=== PATIENT | male | born 1955 | race African-American/Black ===

== ENCOUNTER 2017-02-19 12:49 | Inpatient (IN) | payer OTHER ==
[2017-02-19 13:16] VITALS: BMI 24.9
--- NOTE | 2017-02-19 15:18 | HP ---
CIWA Score - CIWA Score Nausea/Vomitin Muscle Tremors: 3 Anxiety: 3 Agitation: 3 Paroxysmal Sweats: 2 Orientation: 0-Oriented Tacttile Disturbances: 2-Mild Itch/Numbness/Burn Auditory Disturbances: 2-Mild Harshness/Frighten Visual Disturbances: 2-Mild Sensitivity Headache: 2-Mild CIWA-Ar Total Score: 22 Admission ROS BHS - HPI Chief Complaint: i am tire of drinking Allergies/Adverse Reactions: Allergies Allergy/AdvReac Type Severity Reaction Status Date / Time No Known Allergies Allergy Verified 02/19/17 14:54 History of Present Illness: this 61 years old male with alcohol dependence,withdrawal symptom,seeking detox from alcohol,last treatment 2014 did not recall location arthritis of right hip hypertension weight loss longest period of sobriety 1 year Exam Limitations: No Limitations - Ebola screening Have you traveled outside of the country in the last 21 days: No Have you had contact with anyone from an Ebola affected area: No Have you been sick,other than usual withdrawal symptoms: No Do you have a fever: No - Review of Systems Constitutional: Loss of Appetite, Malaise, Night Sweats, Changes in sleep, Weakness, Unintentional Wgt. Loss EENT: reports: Tearing, Nose Congestion Respiratory: reports: No Symptoms reported Cardiac: reports: Palpitations GI: reports: Diarrhea, Nausea, Vomiting, Abdominal cramping : reports: No Symptoms Reported Musculoskeletal: reports: Back Pain, Joint Pain, Muscle Pain, Joint Stiffness ( pin in the right hip) Integumentary: reports: Dryness Neuro: reports: Headache, Tremors Endocrine: reports: No Symptoms Reported Hematology: reports: No Symptoms Reported Psychiatric: reports: No Sypmtoms Reported Other Systems: Reviewed and Negative Patient History - Patient Medical History Hx Asthma: No Hx Chronic Obstructive Pulmonary Disease (COPD): No Hx Cardiac Disorders: No Hx Hypertension: Yes (on meds.) Hx Pacemaker: No HX Cerebrovascular Accident: No Hx Seizures: No Hx Diabetes: No Hx Gastrointestinal Disorders: No Hx Liver Disease: No Hx Genitourinary Disorders: No Hx Sexually Transmitted Disorders: Yes (Tx for syphillis.) Hx Renal Disease (ESRD): No Hx Thyroid Disease: No Hx Human Immunodeficiency Virus (HIV): No (last 12/11 negative) Hx Hepatitis C: No Hx Depression: No Hx Suicide Attempt: No Hx Bipolar Disorder: No Hx Schizophrenia: No Other Medical History: no suicidal,no homicidal - Patient Surgical History Past Surgical History: No - PPD History Previous Implant?: Yes Documented Results: Positive w/o proof Implanted On Prior R Admission?: No PPD to be Administered?: No - Smoking Cessation Smoking history: Current every day smoker Have you smoked in the past 12 months: Yes Aproximately how many cigarettes per day: 20 Hx Chewing Tobacco Use: No Initiated information on smoking cessation: Yes 'Breaking Loose' booklet given: 02/19/17 - Substance & Tx. History Hx Alcohol Use: Yes Hx Substance Use: No Substance Use Type: Alcohol Hx Substance Use Treatment: Yes (2014 unknown location) - Substances Abused Alcohol Route: Oral Frequency: Daily Amount used: 3-4 pints vodka Age of first use: 19 Date of Last Use: 02/18/17 Family Disease History - Family Disease History Family History: Denies Admission Physical Exam [facility] - Vital Signs Vital Signs: Vital Signs - 24 hr 02/19/17 13:07 Temperature 96.4 F L Pulse Rate 119 H Respiratory 20 Rate Blood Pressure 146/98 - Physical General Appearance: Yes: Moderate Distress, Tremorous, Irritable, Sweating, Anxious HEENTM: Yes: Normocephalic, [place] Respiratory: Yes: Lungs Clear, Normal Breath Sounds, No Respiratory Distress Neck: Yes: Within Normal Limits, Supple, Trachea in good position Breast: Yes: Within Normal Limits Cardiology: Yes: Within Normal Limits, Regular Rhythm, Regular Rate, S1, S2 Abdominal: Yes: Within Normal Limits, Normal Bowel Sounds, Non Tender, Flat, Soft Genitourinary: Yes: Within Normal Limits Back: Yes: Muscle Spasm Musculoskeletal: Yes: Back pain, Joint Stiffness (limping on ambulation form arthritis of right hip), Muscle Pain Extremities: Yes: Tremors 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 NML intact, Fully Oriented, Alert, Motor Strength 5/5 Integumentary: Yes: Within Normal Limits Lymphatic: Yes: Within Normal Limits - Diagnostic (1) Alcohol dependence with uncomplicated withdrawal Current Visit: Yes Status: Acute (2) Essential hypertension Current Visit: Yes Status: Acute (3) Hyperlipidemia Current Visit: Yes Status: Acute (4) Weight loss Current Visit: Yes Status: Acute (5) Limping Current Visit: Yes Status: Acute Cleared for Admission [facility] - Detox or Rehab B[facility] Level of Care: Medically Managed [facility] Breath Alcohol Content Breath Alcohol Content: 0.121 Urine Drug Screen - Results Drug Screen Negative: No Urine Drug Screen Results: SHANE-Cocaine, BZO-Benzodiazepines
[2017-02-19] MEDS ORDERED: P-EPHED 60MG/TRIPROLIDI 2.5MG TABLET PO PRN (15:27)
[2017-02-19] MEDS ORDERED: MAGNESIUM HYDROX 2400MG/30ML ORAL SUSPENSION 30 ML CUP PO PRN (15:27)
[2017-02-19] MEDS ORDERED: guaiFENesin/D-METHORPHAN HB 10 ML UNIT-DOSE CUPS PO PRN (15:27)
[2017-02-19] MEDS ORDERED: LOPERAMIDE HCL 2 MG CAPSULE PO PRN (15:27)
[2017-02-19] MEDS ORDERED: MAG HYDROX/AL HYDROX/SIMETH 30 ML UNIT-DOSE CUP PO PRN (15:27)
[2017-02-19] MEDS ORDERED: MAGNESIUM CITRATE 300 ML BOTTLE PO PRN (15:27)
[2017-02-19] MEDS ORDERED: MENTHOL/PHENOL 1 EACH UD MM PRN (15:27)
[2017-02-19] MEDS ORDERED: ACETAMINOPHEN 325 MG TABLET (FP) PO PRN (15:27)
[2017-02-19] MEDS: chlordiazePOXIDE HCL 25 MG CAPSULE PO SCH ×2 (17:54→22:34)
[2017-02-19 19:34] LABS: URINE APPEARANCE CLEAR; URINE BLOOD NEGATIVE (NEGATIVE); URINE COLOR AMBER; URINE GLUCOSE (UA) NEGATIVE (NEGATIVE); URINE KETONE TRACE (NEGATIVE); URINE LEUK ESTERASE NEGATIVE (NEGATIVE); URINE NITRITE NEGATIVE (NEGATIVE)
[2017-02-19 21:27] LABS: URINE PROTEIN 1+ (NEGATIVE)
[2017-02-19 21:37] LABS: GRANULAR CASTS 9 /lpf; URINE HYALINE CAST 20 /lpf; URINE MUCUS MODERATE; URINE RBC 1 /hpf (0-3); URINE WBC 1 /hpf (3-5)
[2017-02-19] MEDS: diphenhydrAMINE HCL 50 MG CAPSULE PO PRN (22:34)
[2017-02-19] MEDS: THIAMINE HCL 100 MG TABLET (FP) PO SCH (22:34)
[2017-02-20] MEDS: chlordiazePOXIDE HCL 25 MG CAPSULE PO SCH ×4 (06:08→22:40)
[2017-02-20 10:17] LABS: MCH 36.1 pg (25.7-33.7); MCHC 33.5 g/dl (32.0-35.9); MEAN CELL VOLUME 107.6 fl (80-96); MEAN PLT VOLUME 9.7 fl (7.5-11.1); PLATELET COUNT 65 K/MM3 (134-434); RDW 16.5 % (11.9-15.9); WHITE BLOOD COUNT 2.8 K/mm3 (4.0-10.0)
[2017-02-20] MEDS: amLODIPine BESYLATE 10 MG TABLET (FP) PO SCH (10:25)
[2017-02-20] MEDS: PRENATAL VITAMINS W/ FOLIC ACID TABLET (FP) PO SCH (10:25)
[2017-02-20] MEDS: METOPROLOL TARTRATE 50 MG TABLET (FP) PO SCH (10:26)
[2017-02-20] MEDS: HYDROCHLOROTHIAZIDE 25 MG TABLET (FP) PO SCH (10:26)
[2017-02-20 10:27] LABS: ALBUMIN 2.6 g/dl (3.4-5.0); ANION GAP 7 (8-16); CALCIUM 9.2 mg/dL (8.5-10.1); CO2 35 mmol/L (21-32); GLUCOSE,RANDOM 84 mg/dL (74-106)
[2017-02-20] MEDS: IBUPROFEN 400 MG TABLET (FP) PO PRN ×2 (10:29→17:26)
[2017-02-20 10:30] LABS: ALK PHOS 124 U/L (45-117); BILIRUBIN,TOTAL 0.8 mg/dL (0.2-1.0); SGOT/AST 175 U/L (15-37); SGPT/ALT 54 U/L (12-78); TOT PROT 5.8 g/dl (6.4-8.2)
--- NOTE | 2017-02-20 11:58 | PN ---
[facility] CIWA - CIWA Score Nausea/Vomitin-Mild Nausea/No Vomiting Muscle Tremors: 3 Anxiety: 4-Mod. Anxious/Guarded Agitation: 3 Paroxysmal Sweats: 3 Orientation: 0-Oriented Tacttile Disturbances: 3-Moderate Itch/Numb/Burn Auditory Disturbances: 0-None Visual Disturbances: 0-None Headache: 0-None Present CIWA-Ar Total Score: 17 BHS Progress Note (SOAP) Subjective: Interrupted sleep, Tremors, Sweating. Objective: PT. A & O X 3, OBSERVED AMBULATING ON UNIT. NO ACUTE DISTRESS. PT. DENIES CHEST PAIN. 02/20/17 11:54 Vital Signs Temperature 98.1 F 02/20/17 10:00 Pulse Rate 86 02/20/17 10:00 Respiratory Rate 20 02/20/17 10:00 Blood Pressure 152/109 02/20/17 10:00 O2 Sat by Pulse Oximetry (%) Laboratory Tests 02/19/17 02/20/17 02/20/17 18:00 06:30 06:30 WBC 2.8 L RBC 2.89 L Hgb 10.4 L Hct 31.1 L MCV 107.6 H MCH 36.1 H MCHC 33.5 RDW 16.5 H Plt Count 65 L MPV 9.7 Sodium 145 Potassium 3.2 L Chloride 103 Carbon Dioxide 35 H Anion Gap 7 L BUN 13 Creatinine 1.0 Creat Clearance w eGFR > 60 Random Glucose 84 Calcium 9.2 Total Bilirubin 0.8 AST 175 H ALT 54 Alkaline Phosphatase 124 H Total Protein 5.8 L Albumin 2.6 L Urine Color Paige Urine Appearance Clear Urine pH 5.0 Ur Specific [place] 1.025 Urine Protein 1+ H Urine Glucose (UA) Negative Urine Ketones Trace H Urine Blood Negative Urine Nitrite Negative Urine Bilirubin 2.0 Urine Urobilinogen 2.0 Ur Leukocyte Esterase Negative Urine RBC 1 Urine WBC 1 Ur Epithelial Cells Rare Hyaline Casts 20 Granular Casts 9 Urine Mucus Moderate LABS NOTED. RPR RESULT PENDING. 02/20/17 12:01 Assessment: 02/20/17 11:56 WITHDRAWAL SYMPTOMS. Plan: CONTINUE DETOX. K-DUR, 20 MEQ PO NOW, THEN BID AFTER. FEOSOL, 325 MG PO TID WITH MEALS. REPEAT CBC AND AST ON 02/22/2017 FOR ABNORMAL ADMISSION LEVELS.
[2017-02-20] MEDS ORDERED: PNEUMOC 13-VAL CONJ-DIP CRM/PF 0.5 ML DISP.SYRIN IM ONE (12:00)
--- NOTE | 2017-02-20 12:00 | EKG ---
Test Reason : Blood Pressure : / mmHG Vent. Rate : 110 BPM Atrial Rate : 110 BPM P-R Int : 132 ms QRS Dur : 084 ms QT Int : 320 ms P-R-T Axes : 070 034 -61 degrees QTc Int : 433 ms SINUS TACHYCARDIA POSSIBLE LEFT ATRIAL ENLARGEMENT LEFT VENTRICULAR HYPERTROPHY T WAVE ABNORMALITY, CONSIDER INFEROLATERAL ISCHEMIA ABNORMAL ECG NO PREVIOUS ECGS AVAILABLE Confirmed by GABY PETE MD ([id number]) on 02/20/2017 12:00:23 PM Referred By: Confirmed By:GABY PETE MD
[2017-02-20] MEDS: POTASSIUM CHLORIDE TABS 20 MEQ TABLET.ER (FP) PO SCH ×2 (12:46→22:40)
[2017-02-20] MEDS: FERROUS SO4 325 MG TABLET (FP) PO SCH ×2 (12:46→17:58)
[2017-02-20] MEDS ORDERED: PNEUMOCOCCAL 23 VACCINE 0.5 ML VIAL IM ONE (13:00)
[2017-02-20] MEDS ORDERED: NICOTINE POLACRILEX 2 MG GUM BUC PRN (13:03)
[2017-02-20] MEDS: NICOTINE 21 MG/24 HOURS TOPICAL PATCH TD SCH (13:22)
[2017-02-20] MEDS: chlordiazePOXIDE HCL 25 MG CAPSULE PO PRN (15:52)
[2017-02-20] MEDS: PATIENT'S OWN MEDICATION (NON-FORMULARY) (Pravastatin Sodium 20 MG) PO SCH ×2 (17:43→22:40)
[2017-02-20] MEDS: diphenhydrAMINE HCL 50 MG CAPSULE PO PRN (22:40)
[2017-02-20] MEDS: THIAMINE HCL 100 MG TABLET (FP) PO SCH (22:40)
[2017-02-21] MEDS: chlordiazePOXIDE HCL 25 MG CAPSULE PO SCH ×2 (05:49→10:18)
[2017-02-21] MEDS: FERROUS SO4 325 MG TABLET (FP) PO SCH ×3 (08:13→17:45)
[2017-02-21] MEDS: IBUPROFEN 400 MG TABLET (FP) PO PRN ×2 (09:32→17:45)
[2017-02-21] MEDS: PRENATAL VITAMINS W/ FOLIC ACID TABLET (FP) PO SCH (10:18)
[2017-02-21] MEDS: METOPROLOL TARTRATE 50 MG TABLET (FP) PO SCH (10:18)
[2017-02-21] MEDS: POTASSIUM CHLORIDE TABS 20 MEQ TABLET.ER (FP) PO SCH ×2 (10:18→22:32)
[2017-02-21] MEDS: amLODIPine BESYLATE 10 MG TABLET (FP) PO SCH (10:18)
[2017-02-21] MEDS: NICOTINE 21 MG/24 HOURS TOPICAL PATCH TD SCH (10:19)
[2017-02-21] MEDS: HYDROCHLOROTHIAZIDE 25 MG TABLET (FP) PO SCH (10:19)
--- NOTE | 2017-02-21 11:57 | PN ---
[facility] CIWA - CIWA Score Nausea/Vomitin-No Nausea/No Vomiting Muscle Tremors: 4-Moderate,w/Arms Extend Anxiety: 3 Agitation: 3 Paroxysmal Sweats: 3 Orientation: 0-Oriented Tacttile Disturbances: 0-None Auditory Disturbances: 0-None Visual Disturbances: 0-None Headache: 0-None Present CIWA-Ar Total Score: 13 S Progress Note (SOAP) Subjective: sweats body aches Objective: 02/21/17 11:55 Vital Signs Temperature 98.2 F 02/21/17 10:00 Pulse Rate 94 H 02/21/17 10:00 Respiratory Rate 20 02/21/17 10:00 Blood Pressure 152/104 02/21/17 10:00 O2 Sat by Pulse Oximetry (%) Laboratory Tests 02/19/17 02/20/17 02/20/17 18:00 06:30 06:30 WBC 2.8 L RBC 2.89 L Hgb 10.4 L Hct 31.1 L MCV 107.6 H MCH 36.1 H MCHC 33.5 RDW 16.5 H Plt Count 65 L MPV 9.7 Sodium 145 Potassium 3.2 L Chloride 103 Carbon Dioxide 35 H Anion Gap 7 L BUN 13 Creatinine 1.0 Creat Clearance w eGFR > 60 Random Glucose 84 Calcium 9.2 Total Bilirubin 0.8 AST 175 H ALT 54 Alkaline Phosphatase 124 H Total Protein 5.8 L Albumin 2.6 L Urine Color Paige Urine Appearance Clear Urine pH 5.0 Ur Specific [place] 1.025 Urine Protein 1+ H Urine Glucose (UA) Negative Urine Ketones Trace H Urine Blood Negative Urine Nitrite Negative Urine Bilirubin 2.0 Urine Urobilinogen 2.0 Ur Leukocyte Esterase Negative Urine RBC 1 Urine WBC 1 Ur Epithelial Cells Rare Hyaline Casts 20 Granular Casts 9 Urine Mucus Moderate RPR Titer 02/20/17 06:30 WBC RBC Hgb Hct MCV MCH MCHC RDW Plt Count MPV Sodium Potassium Chloride Carbon Dioxide Anion Gap BUN Creatinine Creat Clearance w eGFR Random Glucose Calcium Total Bilirubin AST ALT Alkaline Phosphatase Total Protein Albumin Urine Color Urine Appearance Urine pH Ur Specific [place] Urine Protein Urine Glucose (UA) Urine Ketones Urine Blood Urine Nitrite Urine Bilirubin Urine Urobilinogen Ur Leukocyte Esterase Urine RBC Urine WBC Ur Epithelial Cells Hyaline Casts Granular Casts Urine Mucus RPR Titer Nonreactive awake/alert ambulating no acute distress f/u pending labs to be drawan tomorrow Assessment: 02/21/17 11:56 withdrawal sx Plan: continue detox increase fluids
[2017-02-21] MEDS: chlordiazePOXIDE 5 MG CAPSULE PO SCH ×2 (17:45→22:32)
[2017-02-21] MEDS: PATIENT'S OWN MEDICATION (NON-FORMULARY) (Pravastatin Sodium 20 MG) PO SCH (22:32)
[2017-02-21] MEDS: diphenhydrAMINE HCL 50 MG CAPSULE PO PRN (22:32)
[2017-02-21] MEDS: THIAMINE HCL 100 MG TABLET (FP) PO SCH (22:32)
[2017-02-21] MEDS ORDERED: cloNIDine HCL 0.1 MG TABLET PO ONE (22:50)
[2017-02-22] MEDS: chlordiazePOXIDE 5 MG CAPSULE PO SCH ×2 (05:44→10:19)
[2017-02-22] MEDS: FERROUS SO4 325 MG TABLET (FP) PO SCH ×3 (08:16→17:28)
[2017-02-22] MEDS: POTASSIUM CHLORIDE TABS 20 MEQ TABLET.ER (FP) PO SCH ×2 (10:18→22:10)
[2017-02-22] MEDS: amLODIPine BESYLATE 10 MG TABLET (FP) PO SCH (10:18)
[2017-02-22] MEDS: PRENATAL VITAMINS W/ FOLIC ACID TABLET (FP) PO SCH (10:18)
[2017-02-22] MEDS: HYDROCHLOROTHIAZIDE 25 MG TABLET (FP) PO SCH (10:18)
[2017-02-22] MEDS: NICOTINE 21 MG/24 HOURS TOPICAL PATCH TD SCH (10:21)
[2017-02-22 10:39] LABS: BASOPHIL 0.6 % (0-2.0); EOSINOPHIL 3.4 % (0-4.5); MCH 35.7 pg (25.7-33.7); MCHC 32.6 g/dl (32.0-35.9); MEAN CELL VOLUME 109.4 fl (80-96); MEAN PLT VOLUME 9.5 fl (7.5-11.1); NEUTROPHILS 30.4 % (42.8-82.8); PLATELET COUNT 90 K/MM3 (134-434); RDW 16.8 % (11.9-15.9); WHITE BLOOD COUNT 3.6 K/mm3 (4.0-10.0)
[2017-02-22] MEDS: METOPROLOL TARTRATE 50 MG TABLET (FP) PO SCH ×2 (11:13→22:10)
[2017-02-22 11:47] LABS: ANISOCYTOSIS 1+
[2017-02-22 11:48] LABS: STOMATOCYTE 4+
[2017-02-22] MEDS: IBUPROFEN 400 MG TABLET (FP) PO PRN (13:52)
[2017-02-22] MEDS: chlordiazePOXIDE HCL 25 MG CAPSULE PO PRN (13:52)
--- NOTE | 2017-02-22 14:50 | PN ---
BHS Progress Note (SOAP) Subjective: Sweating,interrupted sleep,restless. Objective: 02/22/17 14:48 Vital Signs - 8 hr 02/22/17 02/22/17 02/22/17 07:30 09:52 14:21 Temperature 97.6 F 97.7 F Pulse Rate 78 104 H 77 Respiratory 18 20 18 Rate Blood Pressure 126/77 142/107 146/98 Laboratory Last Values WBC 3.6 K/mm3 (4.0-10.0) L 02/22/17 08:00 RBC 2.73 M/mm3 (4.00-5.60) L 02/22/17 08:00 Hgb 9.8 GM/dL (11.7-16.9) L 02/22/17 08:00 Hct 29.9 % (35.4-49) L 02/22/17 08:00 MCV 109.4 fl (80-96) H 02/22/17 08:00 MCH 35.7 pg (25.7-33.7) H 02/22/17 08:00 MCHC 32.6 g/dl (32.0-35.9) 02/22/17 08:00 RDW 16.8 % (11.9-15.9) H 02/22/17 08:00 Plt Count 90 K/MM3 (134-434) L D 02/22/17 08:00 MPV 9.5 fl (7.5-11.1) 02/22/17 08:00 Neutrophils % 30.4 % (42.8-82.8) L 02/22/17 08:00 Lymphocytes % 51.8 % (8-40) H 02/22/17 08:00 Monocytes % 13.8 % (3.8-10.2) H 02/22/17 08:00 Eosinophils % 3.4 % (0-4.5) 02/22/17 08:00 Basophils % 0.6 % (0-2.0) 02/22/17 08:00 Anisocytosis 1+ 02/22/17 08:00 Macrocytosis 2+ 02/22/17 08:00 Stomatocytes 4+ 02/22/17 08:00 Morphology Comment Slide scanned 02/22/17 08:00 Sodium 145 mmol/L (136-145) 02/20/17 06:30 Potassium 3.2 mmol/L (3.5-5.1) L 02/20/17 06:30 Chloride 103 mmol/L (98-107) 02/20/17 06:30 Carbon Dioxide 35 mmol/L (21-32) H 02/20/17 06:30 Anion Gap 7 (8-16) L 02/20/17 06:30 BUN 13 mg/dL (7-18) 02/20/17 06:30 Creatinine 1.0 mg/dL (0.7-1.3) 02/20/17 06:30 Creat Clearance w eGFR > 60 (>60) 02/20/17 06:30 Random Glucose 84 mg/dL (74-106) 02/20/17 06:30 Calcium 9.2 mg/dL (8.5-10.1) 02/20/17 06:30 Total Bilirubin 0.8 mg/dL (0.2-1.0) 02/20/17 06:30 AST 98 U/L (15-37) H D 02/22/17 08:00 ALT 54 U/L (12-78) 02/20/17 06:30 Alkaline Phosphatase 124 U/L (45-117) H 02/20/17 06:30 Total Protein 5.8 g/dl (6.4-8.2) L 02/20/17 06:30 Albumin 2.6 g/dl (3.4-5.0) L 02/20/17 06:30 Urine Color Paige 02/19/17 18:00 Urine Appearance Clear 02/19/17 18:00 Urine pH 5.0 (5.0-8.0) 02/19/17 18:00 Ur Specific [place] 1.025 (1.005-1.025) 02/19/17 18:00 Urine Protein 1+ (NEGATIVE) H 02/19/17 18:00 Urine Glucose (UA) Negative (NEGATIVE) 02/19/17 18:00 Urine Ketones Trace (NEGATIVE) H 02/19/17 18:00 Urine Blood Negative (NEGATIVE) 02/19/17 18:00 Urine Nitrite Negative (NEGATIVE) 02/19/17 18:00 Urine Bilirubin 2.0 (NEGATIVE) 02/19/17 18:00 Urine Urobilinogen 2.0 mg/dL (0.2-1.0) 02/19/17 18:00 Ur Leukocyte Esterase Negative (NEGATIVE) 02/19/17 18:00 Urine RBC 1 /hpf (0-3) 02/19/17 18:00 Urine WBC 1 /hpf (3-5) 02/19/17 18:00 Ur Epithelial Cells Rare /hpf (FEW) 02/19/17 18:00 Hyaline Casts 20 /lpf 02/19/17 18:00 Granular Casts 9 /lpf 02/19/17 18:00 Urine Mucus Moderate 02/19/17 18:00 RPR Titer Nonreactive (NONREACTIVE) 02/20/17 06:30 labs noted,on k-dur Assessment: 02/22/17 14:49 Withdrawal sx. Plan: Continue detox
[2017-02-22] MEDS: chlordiazePOXIDE HCL 10 MG CAPSULE PO SCH ×2 (17:27→22:10)
[2017-02-22] MEDS: diphenhydrAMINE HCL 50 MG CAPSULE PO PRN (22:09)
[2017-02-22] MEDS: PATIENT'S OWN MEDICATION (NON-FORMULARY) (Pravastatin Sodium 20 MG) PO SCH (22:10)
[2017-02-22] MEDS: THIAMINE HCL 100 MG TABLET (FP) PO SCH (22:11)
[2017-02-23] MEDS: chlordiazePOXIDE HCL 10 MG CAPSULE PO SCH (05:39)
[2017-02-23 06:43] VITALS: BP 127/72; PULSE 67; TEMP 97.7
[2017-02-23] MEDS: FERROUS SO4 325 MG TABLET (FP) PO SCH (07:43)
[2017-02-23] MEDS: POTASSIUM CHLORIDE TABS 20 MEQ TABLET.ER (FP) PO SCH (09:44)
[2017-02-23] MEDS: PRENATAL VITAMINS W/ FOLIC ACID TABLET (FP) PO SCH (09:44)
[2017-02-23] MEDS: amLODIPine BESYLATE 10 MG TABLET (FP) PO SCH (09:44)
[2017-02-23] MEDS: METOPROLOL TARTRATE 50 MG TABLET (FP) PO SCH (09:44)
[2017-02-23] MEDS: HYDROCHLOROTHIAZIDE 25 MG TABLET (FP) PO SCH (09:44)
[2017-02-23] MEDS: IBUPROFEN 400 MG TABLET (FP) PO PRN (09:45)
--- NOTE | 2017-02-23 13:32 | DS ---
[facility] Detox Discharge Summary Admission Date: 02/19/17 Discharge Date: 02/23/17 - History Present History: Alcohol Dependence Pertinent Past History: HTN Hyperlipidemia - Physical Exam Results Vital Signs: Vital Signs Temperature 97.7 F 02/23/17 06:00 Pulse Rate 67 02/23/17 06:00 Respiratory Rate 18 02/23/17 06:00 Blood Pressure 127/72 02/23/17 06:00 O2 Sat by Pulse Oximetry (%) Pertinent Admission Physical Exam Findings: Withdrawal sx. Laboratory Last Values WBC 3.6 K/mm3 (4.0-10.0) L 02/22/17 08:00 RBC 2.73 M/mm3 (4.00-5.60) L 02/22/17 08:00 Hgb 9.8 GM/dL (11.7-16.9) L 02/22/17 08:00 Hct 29.9 % (35.4-49) L 02/22/17 08:00 MCV 109.4 fl (80-96) H 02/22/17 08:00 MCH 35.7 pg (25.7-33.7) H 02/22/17 08:00 MCHC 32.6 g/dl (32.0-35.9) 02/22/17 08:00 RDW 16.8 % (11.9-15.9) H 02/22/17 08:00 Plt Count 90 K/MM3 (134-434) L D 02/22/17 08:00 MPV 9.5 fl (7.5-11.1) 02/22/17 08:00 Neutrophils % 30.4 % (42.8-82.8) L 02/22/17 08:00 Lymphocytes % 51.8 % (8-40) H 02/22/17 08:00 Monocytes % 13.8 % (3.8-10.2) H 02/22/17 08:00 Eosinophils % 3.4 % (0-4.5) 02/22/17 08:00 Basophils % 0.6 % (0-2.0) 02/22/17 08:00 Anisocytosis 1+ 02/22/17 08:00 Macrocytosis 2+ 02/22/17 08:00 Stomatocytes 4+ 02/22/17 08:00 Morphology Comment Slide scanned 02/22/17 08:00 Sodium 145 mmol/L (136-145) 02/20/17 06:30 Potassium 3.2 mmol/L (3.5-5.1) L 02/20/17 06:30 Chloride 103 mmol/L (98-107) 02/20/17 06:30 Carbon Dioxide 35 mmol/L (21-32) H 02/20/17 06:30 Anion Gap 7 (8-16) L 02/20/17 06:30 BUN 13 mg/dL (7-18) 02/20/17 06:30 Creatinine 1.0 mg/dL (0.7-1.3) 02/20/17 06:30 Creat Clearance w eGFR > 60 (>60) 02/20/17 06:30 Random Glucose 84 mg/dL (74-106) 02/20/17 06:30 Calcium 9.2 mg/dL (8.5-10.1) 02/20/17 06:30 Total Bilirubin 0.8 mg/dL (0.2-1.0) 02/20/17 06:30 AST 98 U/L (15-37) H D 02/22/17 08:00 ALT 54 U/L (12-78) 02/20/17 06:30 Alkaline Phosphatase 124 U/L (45-117) H 02/20/17 06:30 Total Protein 5.8 g/dl (6.4-8.2) L 02/20/17 06:30 Albumin 2.6 g/dl (3.4-5.0) L 02/20/17 06:30 Urine Color Paige 02/19/17 18:00 Urine Appearance Clear 02/19/17 18:00 Urine pH 5.0 (5.0-8.0) 02/19/17 18:00 Ur Specific [place] 1.025 (1.005-1.025) 02/19/17 18:00 Urine Protein 1+ (NEGATIVE) H 02/19/17 18:00 Urine Glucose (UA) Negative (NEGATIVE) 02/19/17 18:00 Urine Ketones Trace (NEGATIVE) H 02/19/17 18:00 Urine Blood Negative (NEGATIVE) 02/19/17 18:00 Urine Nitrite Negative (NEGATIVE) 02/19/17 18:00 Urine Bilirubin 2.0 (NEGATIVE) 02/19/17 18:00 Urine Urobilinogen 2.0 mg/dL (0.2-1.0) 02/19/17 18:00 Ur Leukocyte Esterase Negative (NEGATIVE) 02/19/17 18:00 Urine RBC 1 /hpf (0-3) 02/19/17 18:00 Urine WBC 1 /hpf (3-5) 02/19/17 18:00 Ur Epithelial Cells Rare /hpf (FEW) 02/19/17 18:00 Hyaline Casts 20 /lpf 02/19/17 18:00 Granular Casts 9 /lpf 02/19/17 18:00 Urine Mucus Moderate 02/19/17 18:00 RPR Titer Nonreactive (NONREACTIVE) 02/20/17 06:30 labs noted - Treatment Hospital Course: Detox Protocol Followed, Detoxed Safely, Responded well, Discharged Condition Good, Rehab Referral Accepted Patient has Accepted a Rehab Referral to: [facility] - Medication Discharge Medications: Ambulatory Orders Amlodipine Besylate [Norvasc -] 10 mg PO DAILY 02/19/17 Folic Acid - 1 mg PO DAILY 02/19/17 Hydrochlorothiazide 25 mg PO DAILY 02/19/17 Ibuprofen 800 mg PO TID 02/19/17 Metoprolol Tartrate [Lopressor -] 50 mg PO DAILY 02/19/17 Pravastatin Sodium [Pravachol (Nf)] 20 mg PO HS 02/19/17 Ferrous Sulfate [Feosol] 325 mg PO TIDCM #100 mg 02/23/17 Nicotine Patch [Nicoderm Patch -] 21 mg TD DAILY #20 patch 02/23/17 - Diagnosis (1) Alcohol dependence with uncomplicated withdrawal Status: Acute (2) Essential hypertension Status: Acute (3) Hyperlipidemia Status: Acute Qualifiers: Hyperlipidemia type: mixed hyperlipidemia Qualified Code(s): E78.2 - Mixed hyperlipidemia (4) Limping Status: Acute - AMA Did Patient Leave Against Medical Advice: No
== END 2017-02-23 09:50 | disposition home or self-care (01) | DRG 775 ==
LOC: YASAS 12:49 → Y6N 16:22
PROVIDERS: ADMIT Internal Medicine; ATTEND Internal Medicine
PROC: HZ2ZZZZ Detoxification Services for Substance Abuse Treatment (ICD-10-PCS; principal; 2017-02-23)
DX: F10.230 Alcohol dependence with withdrawal, uncomplicated (principal); F17.210 Nicotine dependence, cigarettes, uncomplicated; I10 Essential (primary) hypertension; E78.2 Mixed hyperlipidemia; M13.851 Other specified arthritis, right hip; R26.2 Difficulty in walking, not elsewhere classified; R63.4 Abnormal weight loss; Z68.24 Body mass index [BMI] 24.0-24.9, adult; Z87.438 Personal history of other diseases of male genital organs
CPT/HCPCS: 36415; 71020-TC; 80053; 81003; 81015; 84450; 85025; 85027; 86593; 90732; 93005; 93010; G0009